=== PATIENT | female | born 1970 | race Caucasian/White ===

== ENCOUNTER 2023-03-09 18:25 | Emergency (ER) | payer SELFPAY ==
[2023-03-09] MEDS ORDERED: diphenhydrAMINE 50 MG/ML VIAL ONE (18:43)
[2023-03-09] MEDS ORDERED: Metoclopramide HCl 10 MG (2 mL) VIAL ONE (18:43)
[2023-03-09] MEDS ORDERED: Ketorolac Tromethamine 30 MG (1 mL) VIAL ONE (18:44)
[2023-03-09] MEDS ORDERED: Fluorescein Opthalmic Strip ONE (19:21)
[2023-03-09] MEDS ORDERED: Morphine 4 MG/ML VIAL ONE (19:49)
[2023-03-09] MEDS ORDERED: HYDROcodone/Acetaminophen 10/325 mg Tablet ONE (20:24)
== END 2023-03-09 21:20 | disposition home or self-care (01) ==
LOC: CSHERS 18:25
DX: B02.9 Zoster without complications (principal); B00.52 Herpesviral keratitis; G43.909 Migraine, unspecified, not intractable, without status migrainosus
CPT/HCPCS: 70450; 96374; 96375; J1200; J1885; J2270; J2765